=== PATIENT | male | born 1975 | race African-American/Black ===

== ENCOUNTER 2017-10-08 10:19 | Emergency (ER) | payer SELFPAY ==
[~2017-10-08] VITALS: Ht 172.7 cm; Wt 81.5 kg
[~2017-10-08 10:19] MED LIST: TRAM50 PO
[2017-10-08 10:26] VITALS: BP 100/59; PULSE 100; RESP 18; TEMP 97.8; O2SAT 100
[2017-10-08 10:55] LABS: AUTOMATED NEUTROPHIL # 6.3 TH/MM3 (1.8-7.7); BASOPHIL % 0.1 % (0.0-2.0); EOSINOPHIL # 0.4 TH/MM3 (0-0.4); EOSINOPHIL % 4.7 % (0.0-4.0); HEMOGLOBIN 9.6 GM/DL (13.0-17.0); LYMPH % 13.2 % (9.0-44.0); LYMPHOCYTE # 1.2 TH/MM3 (1.0-4.8); MEAN CELL VOLUME 80.6 FL (80.0-100.0); MEAN CORPUSCULAR HEMOGLOBIN 25.7 PG (27.0-34.0); MEAN CORPUSCULAR HGB CONC 31.9 % (32.0-36.0); MEAN PLATELET VOLUME 7.9 FL (7.0-11.0); MONO % 12.6 % (0.0-8.0); MONOCYTE # 1.2 TH/MM3 (0-0.9); NEUT % 69.4 % (16.0-70.0); PLATELET COUNT 345 TH/MM3 (150-450); RED BLOOD COUNT 3.72 MIL/MM3 (4.50-5.90); RED CELL DISTRIBUTION WIDTH 16.8 % (11.6-17.2); WHITE BLOOD COUNT 9.1 TH/MM3 (4.0-11.0)
[2017-10-08] MEDS ORDERED: DICYCLOMINE HCL 10 MG CAP PO ONE (11:00)
[2017-10-08] MEDS ORDERED: ONDANSETRON ODT 4 MG TAB PO ONE (11:00)
[2017-10-08 11:14] LABS: ALT (GPT) 14 U/L (12-78); AST (GOT) 10 U/L (15-37); BLOOD UREA NITROGEN 6 MG/DL (7-18); CALCIUM 8.3 MG/DL (8.5-10.1); CHLORIDE 109 MEQ/L (98-107); CREATININE 1.12 MG/DL (0.60-1.30); GLOMERULAR FILTRATION RATE 88 ML/MIN (>89); GLUCOSE,RANDOM 98 MG/DL (74-106); SODIUM (NA) 145 MEQ/L (136-145)
[2017-10-08 11:16] LABS: ALKALINE PHOSPHATASE 65 U/L (45-117); TOTAL BILIRUBIN ADULT 0.2 MG/DL (0.2-1.0); TOTAL PROTEIN 6.7 GM/DL (6.4-8.2)
[2017-10-08] MEDS ORDERED: LOPE2CAP PO (11:31)
[2017-10-08] MEDS ORDERED: DICY10 PO (11:31)
--- NOTE | 2017-10-08 11:31 | PD ---
HPI Chief Complaint: Abdominal Pain Time Seen by Provider: 10:30 Travel History International Travel<30 days: No Contact w/Intl Traveler<30days: No Traveled to known affect area: No History of Present Illness HPI Is a 42-year-old man presents to the emergency department complaining of abdominal pain is been ongoing for a year or so. He has been incarcerated, was recently he states intermittent, waxing and waning in severity, abdominal pain, predictably after eating, associated with loose bloody sometimes mucoid stools. 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 Was just released. States he was supposed to get a colonoscopy but has not had it done. No family history of inflammatory bowel disease. He states prior to this past year he has not had any similar symptoms lost a little bit away but is getting some of the back. No other night sweats or constitutional symptoms. No vomiting. History Past Medical History Medical History: Denies Significant Hx Past Surgical History Surgical History: No Previous Surgery Social History Alcohol Use: No Tobacco Use: No Allergies-Medications (Allergen,Severity, Reaction): Coded Allergies: No Known Allergies (Verified , 03/11/11) Reported Meds & Prescriptions Reported Meds & Active Scripts Active No Active Prescriptions or Reported Medications Review of Systems Except as stated in HPI: all other systems reviewed are Neg Physical Exam Narrative GENERAL: Well appearing 42 yo man, no acute distress. SKIN: Focused skin assessment warm/dry. HEAD: Atraumatic. Normocephalic. EYES: Pupils equal and round. No scleral icterus. No injection or drainage. ENT: No nasal bleeding or discharge. Mucous membranes pink and moist. NECK: Trachea midline. No JVD. CARDIOVASCULAR: Regular rate and rhythm. No murmur appreciated. RESPIRATORY: No accessory muscle use. Clear to auscultation. Breath sounds equal bilaterally. GASTROINTESTINAL: Abdomen soft, non-tender, nondistended. Hepatic and splenic margins not palpable. MUSCULOSKELETAL: No obvious deformities. No clubbing. No cyanosis. No edema. NEUROLOGICAL: Awake and alert. No obvious cranial nerve deficits. Motor grossly within normal limits. Normal speech. PSYCHIATRIC: Appropriate mood and affect; insight and judgment normal. Data Data Last Documented VS Vital Signs Date Time Temp Pulse Resp B/P (MAP) Pulse Ox O2 Delivery O2 Flow Rate FiO2 10/08/17 10:26 97.8 100 18 100/59 (73) 100 Orders Orders Complete Blood Count With Diff (10/08/17 10:42) Comprehensive Metabolic Panel (10/08/17 10:42) Dicyclomine (Bentyl) (10/08/17 11:00) Ondansetron Odt (Zofran Odt) (10/08/17 11:00) Labs Laboratory Tests Test 10/08/17 10:45 White Blood Count 9.1 TH/MM3 Red Blood Count 3.72 MIL/MM3 Hemoglobin 9.6 GM/DL Hematocrit 30.0 % Mean Corpuscular Volume 80.6 FL Mean Corpuscular Hemoglobin 25.7 PG Mean Corpuscular Hemoglobin Concent 31.9 % Red Cell Distribution Width 16.8 % Platelet Count 345 TH/MM3 Mean Platelet Volume 7.9 FL Neutrophils (%) (Auto) 69.4 % Lymphocytes (%) (Auto) 13.2 % Monocytes (%) (Auto) 12.6 % Eosinophils (%) (Auto) 4.7 % Basophils (%) (Auto) 0.1 % Neutrophils # (Auto) 6.3 TH/MM3 Lymphocytes # (Auto) 1.2 TH/MM3 Monocytes # (Auto) 1.2 TH/MM3 Eosinophils # (Auto) 0.4 TH/MM3 Basophils # (Auto) 0.0 TH/MM3 CBC Comment DIFF FINAL Differential Comment Blood Urea Nitrogen 6 MG/DL Creatinine 1.12 MG/DL Random Glucose 98 MG/DL Total Protein 6.7 GM/DL Albumin 3.0 GM/DL Calcium Level 8.3 MG/DL Alkaline Phosphatase 65 U/L Aspartate Amino Transf (AST/SGOT) 10 U/L Alanine Aminotransferase (ALT/SGPT) 14 U/L Total Bilirubin 0.2 MG/DL Sodium Level 145 MEQ/L Potassium Level 3.6 MEQ/L Chloride Level 109 MEQ/L Carbon Dioxide Level 28.0 MEQ/L Anion Gap 8 MEQ/L Estimat Glomerular Filtration Rate 88 ML/MIN [facility] Medical Decision Making Medical Screen Exam Complete: Yes Emergency Medical Condition: Yes Interpretation(s) LABS: CBC remarkable for mild anemia. CMP is generally unremarkable. Differential Diagnosis IBD, malignancy, colitis, other Narrative Course Medical decision making 42-year-old man with chronic abdominal pain with bloody diarrhea, needs GI follow-up for endoscopy. Will give referral to GI. Patient is uninsured. Also give referral to thiago. We will continue Bentyl, Imodium. Diagnosis Primary Impression: Abdominal pain Patient Instructions: General Instructions Additional Instructions: Take Bentyl as prescribed as needed for abdominal cramping. Follow-up with a GI doctor, or with the primary physician for referral to GI doctor for further evaluation of this abdominal pain. Return to the emergency department for any new or worsening symptoms. Med/Other Pt SpecificInfo: Prescription(s) given Scripts Loperamide (Loperamide) 2 Mg Cap 2 MG PO DIRECTED Y for DIARRHEA, #20 CAP 0 Refills One capsule after each loose stool. Not to exceed 8 capsules per day. Prov: Gilson Garcia MD 10/08/17 Dicyclomine (Bentyl) 10 Mg Cap 10 MG PO TID Y for ABDOMINAL CRAMPING, #30 CAP 0 Refills Prov: Gilson Garcia MD 10/08/17 Disposition: 01 DISCHARGE HOME Condition: Stable Gilson Garcia MD Oct 08, 2017 11:31
--- NOTE | 2017-10-08 11:39 | PD ---
Data Data Last Documented VS Vital Signs Date Time Temp Pulse Resp B/P (MAP) Pulse Ox O2 Delivery O2 Flow Rate FiO2 10/08/17 10:26 97.8 100 18 100/59 (73) 100 Orders Orders Complete Blood Count With Diff (10/08/17 10:42) Comprehensive Metabolic Panel (10/08/17 10:42) Dicyclomine (Bentyl) (10/08/17 11:00) Ondansetron Odt (Zofran Odt) (10/08/17 11:00) Ed Discharge Order (10/08/17 11:31) Labs Laboratory Tests Test 10/08/17 10:45 White Blood Count 9.1 TH/MM3 Red Blood Count 3.72 MIL/MM3 Hemoglobin 9.6 GM/DL Hematocrit 30.0 % Mean Corpuscular Volume 80.6 FL Mean Corpuscular Hemoglobin 25.7 PG Mean Corpuscular Hemoglobin Concent 31.9 % Red Cell Distribution Width 16.8 % Platelet Count 345 TH/MM3 Mean Platelet Volume 7.9 FL Neutrophils (%) (Auto) 69.4 % Lymphocytes (%) (Auto) 13.2 % Monocytes (%) (Auto) 12.6 % Eosinophils (%) (Auto) 4.7 % Basophils (%) (Auto) 0.1 % Neutrophils # (Auto) 6.3 TH/MM3 Lymphocytes # (Auto) 1.2 TH/MM3 Monocytes # (Auto) 1.2 TH/MM3 Eosinophils # (Auto) 0.4 TH/MM3 Basophils # (Auto) 0.0 TH/MM3 CBC Comment DIFF FINAL Differential Comment Blood Urea Nitrogen 6 MG/DL Creatinine 1.12 MG/DL Random Glucose 98 MG/DL Total Protein 6.7 GM/DL Albumin 3.0 GM/DL Calcium Level 8.3 MG/DL Alkaline Phosphatase 65 U/L Aspartate Amino Transf (AST/SGOT) 10 U/L Alanine Aminotransferase (ALT/SGPT) 14 U/L Total Bilirubin 0.2 MG/DL Sodium Level 145 MEQ/L Potassium Level 3.6 MEQ/L Chloride Level 109 MEQ/L Carbon Dioxide Level 28.0 MEQ/L Anion Gap 8 MEQ/L Estimat Glomerular Filtration Rate 88 ML/MIN MDM Supervised Visit with MARIA ESTHER: No Diagnosis Primary Impression: Abdominal pain Referrals: Yonatan Michelle MD call for appointment [facility] 1 week Patient Instructions: General Instructions Additional Instruction: Take Bentyl as prescribed as needed for abdominal cramping. Follow-up with a GI doctor, or with the primary physician for referral to GI doctor for further evaluation of this abdominal pain. Return to the emergency department for any new or worsening symptoms. Scripts Loperamide (Loperamide) 2 Mg Cap 2 MG PO DIRECTED Y for DIARRHEA, #20 CAP 0 Refills One capsule after each loose stool. Not to exceed 8 capsules per day. Prov: Gilson Garcia MD 10/08/17 Dicyclomine (Bentyl) 10 Mg Cap 10 MG PO TID Y for ABDOMINAL CRAMPING, #30 CAP 0 Refills Prov: Gilson Garcia MD 10/08/17 Disposition: 01 DISCHARGE HOME Condition: Stable Gilson Garcia MD Oct 08, 2017 11:39
== END 2017-10-08 12:00 | disposition home or self-care (01) ==
LOC: NEPD 10:19
DX: R10.9 Unspecified abdominal pain (principal)
CPT/HCPCS: 80053; 85025; 99283

== ENCOUNTER 2017-10-18 19:59 | Emergency (ER) | payer SELFPAY ==
[~2017-10-18] VITALS: Ht 182.9 cm; Wt 75.0 kg
[~2017-10-18 19:59] MED LIST changes: +DICY10 PO; +LOPE2CAP PO; -TRAM50 PO
[2017-10-18 20:22] VITALS: BP 112/53; PULSE 83; RESP 16; TEMP 97.6; O2SAT 99
[2017-10-18 22:20] VITALS: BP 109/59; PULSE 65; RESP 18; TEMP 98.6; O2SAT 100
[2017-10-18] MEDS ORDERED: KETOROLAC TROMETHAMINE 60 MG/2 ML (IM) VIAL IM ONE (23:00)
--- NOTE | 2017-10-18 23:35 | PD ---
HPI Chief Complaint: Edema Time Seen by Provider: 22:31 Travel History International Travel<30 days: No Contact w/Intl Traveler<30days: No Traveled to known affect area: No History of Present Illness HPI 42yo M presents to the ED with c/o bilateral lower extremity edema for 2 weeks. States it is more foot and ankle and swelling is improved with elevation of legs. Has some pain in the tibia with palpation in both lower extremities. Denies any calf pain, fever, trauma, focal weakness or numbness, chest pain, sob , n/v, abdominal pain. Memo any history of DVT, PE, hemoptysis. PFSH Past Medical History Immunizations Current: Yes Tetanus Vaccination: < 5 Years Influenza Vaccination: No Social History Alcohol Use: No Tobacco Use: No Substance Use: No Allergies-Medications (Allergen,Severity, Reaction): Coded Allergies: No Known Allergies (Verified Adverse Reaction, Unknown, 10/18/17) Reported Meds & Prescriptions Reported Meds & Active Scripts Active Loperamide (Loperamide HCl) 2 Mg Cap 2 Mg PO DIRECTED PRN One capsule after each loose stool. Not to exceed 8 capsules per day. Bentyl (Dicyclomine HCl) 10 Mg Cap 10 Mg PO TID PRN Review of Systems Except as stated in HPI: all other systems reviewed are Neg Physical Exam Narrative GENERAL: 42yo M not in distress. SKIN: Focused skin assessment warm/dry. HEAD: Atraumatic. Normocephalic. EYES: Pupils equal and round. No scleral icterus. No injection or drainage. ENT: No nasal bleeding or discharge. Mucous membranes pink and moist. NECK: Trachea midline. No JVD. CARDIOVASCULAR: Regular rate and rhythm. No murmur appreciated. RESPIRATORY: No accessory muscle use. Clear to auscultation. Breath sounds equal bilaterally. GASTROINTESTINAL: Abdomen soft, non-tender, nondistended. MUSCULOSKELETAL: No obvious deformities. No clubbing. No cyanosis. +Bilateral lower extremity edema more on foot and ankle. No calf tenderness bilaterally. DP 2+. Sensation intact. NEUROLOGICAL: Awake and alert. No obvious cranial nerve deficits. Motor grossly within normal limits. Normal speech. PSYCHIATRIC: Appropriate mood and affect; insight and judgment normal. Data Data Last Documented VS Vital Signs Date Time Temp Pulse Resp B/P (MAP) Pulse Ox O2 Delivery O2 Flow Rate FiO2 10/18/17 22:20 65 18 100 Room Air 10/18/17 22:20 98.6 109/59 (76) Orders Orders Comprehensive Metabolic Panel (10/18/17 22:50) Ketorolac Inj (Toradol Inj) (10/18/17 23:00) Labs Laboratory Tests Test 10/18/17 22:55 Blood Urea Nitrogen 10 MG/DL Creatinine 1.23 MG/DL Random Glucose 92 MG/DL Total Protein 6.4 GM/DL Albumin 2.8 GM/DL Calcium Level 8.5 MG/DL Alkaline Phosphatase 69 U/L Aspartate Amino Transf (AST/SGOT) 19 U/L Alanine Aminotransferase (ALT/SGPT) 32 U/L Total Bilirubin 0.1 MG/DL Sodium Level 145 MEQ/L Potassium Level 3.9 MEQ/L Chloride Level 110 MEQ/L Carbon Dioxide Level 30.1 MEQ/L Anion Gap 5 MEQ/L Estimat Glomerular Filtration Rate 79 ML/MIN MDM Medical Decision Making Medical Screen Exam Complete: Yes Emergency Medical Condition: Yes Differential Diagnosis Valve insufficiency vs. liver failure vs. kidney failure Narrative Course 42yo M with bilateral lower extremity edema. CMP reviewed, normal creatinine and LFTs. Pt given toradol and pain has resolved. Edema is bilateral and improves with elevation. I do not think he has bilateral DVT and explained to him and he agrees and does not want an ultrasound. Said he can follow up as outpatient if symptoms worsen. Diagnosis Primary Impression: Lower extremity edema Patient Instructions: General Instructions Departure Forms: Tests/Procedures Additional Instructions: Please follow up with your primary care physician in 2-3 days. Return to the ED if symptoms worsen. Med/Other Pt SpecificInfo: Prescription(s) given Scripts Acetaminophen (Tylenol) 325 Mg Tab 650 MG PO Q6H Y for PAIN SCALE 1 TO 4, #20 TAB 0 Refills Prov: JovelAna 10/19/17 Disposition: 01 DISCHARGE HOME Condition: Stable JovelJamia jimenezrosario JOVEL Oct 18, 2017 23:34
[2017-10-18 23:47] LABS: ALBUMIN 2.8 GM/DL (3.4-5.0); AST (GOT) 19 U/L (15-37); BICARBONATE 30.1 MEQ/L (21.0-32.0); BLOOD UREA NITROGEN 10 MG/DL (7-18); CALCIUM 8.5 MG/DL (8.5-10.1); CHLORIDE 110 MEQ/L (98-107); CREATININE 1.23 MG/DL (0.60-1.30); GLOMERULAR FILTRATION RATE 79 ML/MIN (>89); GLUCOSE,RANDOM 92 MG/DL (74-106); SODIUM (NA) 145 MEQ/L (136-145)
[2017-10-18 23:52] LABS: ALKALINE PHOSPHATASE 69 U/L (45-117); ALT (GPT) 32 U/L (12-78); TOTAL BILIRUBIN ADULT 0.1 MG/DL (0.2-1.0); TOTAL PROTEIN 6.4 GM/DL (6.4-8.2)
[2017-10-19 00:45] VITALS: BP 104/54; PULSE 62; RESP 16; TEMP 98.9; O2SAT 98
[2017-10-19] MEDS ORDERED: TYLE325T PO (00:46)
== END 2017-10-19 00:59 | disposition home or self-care (01) ==
LOC: NEPD 19:59
DX: R60.0 Localized edema (principal)
CPT/HCPCS: 80053; 96372; 99283; J1885